=== PATIENT | female | born 1975 | race Caucasian/White ===

== ENCOUNTER 2023-09-15 10:52 | Outpatient (CLI) | payer MEDICAID | END 2023-09-15 23:59 | disposition home or self-care (01) | LOC: RAD 10:52 | PROVIDERS: ATTEND Specialist | DX: E04.2 Nontoxic multinodular goiter (principal) | CPT/HCPCS: 76536 ==

== ENCOUNTER 2024-05-29 05:37 | Outpatient (CLI) | payer MEDICAID | END 2024-05-29 23:59 | disposition home or self-care (01) | LOC: MRI02 05:37 | PROVIDERS: ATTEND Podiatrist Foot & Ankle Surgery | DX: M25.472 Effusion, left ankle (principal); M25.373 Other instability, unspecified ankle; M76.70 Peroneal tendinitis, unspecified leg; M76.829 Posterior tibial tendinitis, unspecified leg; M24.573 Contracture, unspecified ankle; L60.0 Ingrowing nail; Z98.890 Other specified postprocedural states | CPT/HCPCS: 73718; 73721 ==

== ENCOUNTER 2024-12-19 12:11 | Emergency (ER) | payer MEDICAID ==
[~2024-12-19] VITALS: Ht 157.5 cm; Wt 85.5 kg
--- NOTE | 2024-12-19 12:27 | ELECTROCARDIOGRAPH REPORT ---
[facility] Test Date: 2024-12-19 Test Time: 12:15:50 Pat Name: RYLEE WESTBROOK Department: EMERGENCY ROOM [id number] Room: Gender: F Accredited Legal Secretary: RUSS : 1975 Requested By: IVIS CASON Order Number: [id number] Reading MD: Measurements Intervals [place] Rate: 121 P: 41 NH: 139 QRS: 69 QRSD: 80 T: -5 QT: 293 QTc: 416 Interpretive Statements Sinus tachycardia Ventricular premature complex Aberrant complex Probable left atrial enlargement Borderline T abnormalities, anterior leads Baseline wander in lead(s) V4,V5 Please click the below link to view image of tracing.
[2024-12-19 12:38] LABS: MEAN PLATELET VOLUME 8.6 FL (7.4-10.4); RED CELL DISTRIBUTION WIDTH 12.4 % (11.5-14.5)
--- NOTE | 2024-12-19 12:45 | RADIOLOGY REPORT ---
AP portable chest CLINICAL INDICATION: CP FINDINGS: Heart size is normal. No infiltrates or effusions. No bony thoracic abnormalities. IMPRESSION: 1. No acute cardiopulmonary pathology
[2024-12-19 12:53] LABS: CREATININE 0.79 MG/DL (0.40-0.90); PRO BRAIN NATRIURETIC PEPTIDE < 30 PG/ML (0-125); TOTAL CARBON DIOXIDE 18.9 MMOL/L (24-32); eCRCL 67 ML/MIN; eGFR 77 ML/MIN
[2024-12-19] MEDS: mag hydrox/Alum hydrox/simeth 30ml oral suspension PO ONE (15:31)
[2024-12-19] MEDS: LIDOcaine 2% Viscous 15ml cup MM PRN (15:31)
[2024-12-19] MEDS: diazepam inj 5 MG/ML inj. IV ONE (15:57)
--- NOTE | 2024-12-19 16:53 | Physician Documentation ---
History of Present Illness ~ Chief Complaint: Chest Pain Stated Complaint: CP Time Seen by MD: 13:36 Mode of Arrival: POV [facility] 48F presents to the ED with a complaint of midsternum chest pain which is burning in nature. She states it is started yesterday. She says the pain ranges from four to 10/10. Also reports nausea and shortness a breath. States she had a recent surgery on November 30 on her left ankle. Denies any cigarette smoking. The patient is not tachycardic She does however report an increase in anxiety and a long history of anxiety which he has not been medicated for. Day of Onset: Dec 19, 2024 Medication Reconciliation Allergies: Coded Allergies: acetaminophen (Verified Allergy, Severe, DIFF BREATHING, 12/19/24) baclofen (Verified Allergy, Severe, RASH, 12/19/24) codeine (Verified Allergy, Severe, DIFF BREATHING, 12/19/24) cyclobenzaprine (Verified Allergy, Severe, RASH, 12/19/24) doxycycline (Verified Allergy, Severe, HIVES AN DRASH, 12/19/24) hydrocodone (Verified Allergy, Severe, DIFF BREATHING, 12/19/24) sugammadex (Verified Allergy, Severe, ANAPHYLATIC RXN, 12/19/24) tramadol (Verified Allergy, Severe, DIFFICULITY BREATHING, 12/19/24) clindamycin (Verified Allergy, Unknown, RASH AND HIVES, 12/19/24) meloxicam (Verified Allergy, Unknown, RASH AND HIVES, 12/19/24) Scheduled Aspirin (Aspirin EC), 1 TAB PO DAILY, (Reported) Cholecalciferol (Vitamin D3) (Vitamin D3), 1 CAP PO Q7D, (Reported) Cholecalciferol (Vitamin D3) (Vitamin D3), 1 TAB PO DAILY, (Reported) Ferrous Sulfate (Iron), 1 TAB PO Q12H, (Reported) Magnesium Oxide (Magnesium), 2 CAP PO DAILY, (Reported) Metaxalone (Metaxalone), 800 MG PO BID, (Reported) Omeprazole (Prilosec), 1 CAP PO DAILY Miscellaneous Medications Bacillus Coagulans (Probiotic), (Reported) Past Medical History Last Menstrual Period: Dec 08, 2024 Smoking Status: Never smoker Review of Systems All Other Systems at this time: Reviewed and Negative ROS As stated above in the HPI, otherwise all systems are reviewed and negative. Physical Exam Vital Signs: Temperature: 96.2, Heart Rate: 115, Respiratory Rate: 22, BP: 135/82, Pulse Oximetry: 98, Weight: 85.450 Oxygen Flow Rate: 0 Physical Exam General: No acute distress Respiratory: Lungs clear, no respiratory distress. Chest: No accessory muscle use. Cardiovascular: Regular rate and rhythm, no murmurs. Gastrointestinal: Soft, nontender, nondistended. Bowels sounds present. Extremities: Normal range of motion, no deformity. Neurologic: Oriented x4. Psychiatric: Normal mood and affect. Skin: Normal color, warm and dry. No edema, no ecchymosis. Progress Results/Orders Results/Orders Orders - NOLBERTO VELAZQUEZ DIETARY ASSISTANT Lidocaine 2% Viscous (Xylocaine 2% Visco (12/19/24 14:55) Cta Chest Pe (12/19/24 16:36) Urinalysis (12/19/24 15:29) Completed Orders - NOLBERTO VELAZQUEZ DIETARY ASSISTANT LA (12/19/24 14:30) D-Dimer (12/19/24 14:30) Mag & Alum Hydrox/Simeth Susp (Maalox Or (12/19/24 14:55) Cta Chest Pe (12/19/24 16:36) Diazepam Inj (Valium Inj) (12/19/24 15:50) Iohexol 350mg/Ml 100ml (Omnipaque 350mg/ (12/19/24 16:26) Medications Received in ER Medications (Trade) Dose Ordered Sig/Vanessa Route PRN Reason Start Time Stop Time Status Last Admin Dose Admin (Xylocaine 2% Viscous 15mL cup) 15 ml Q4H PRN MM sore throat 12/19/24 14:55 12/19/24 15:31 15 ML (Maalox oral suspension) 30 ml ONCE ONCE PO 12/19/24 14:55 12/19/24 14:56 DC 12/19/24 15:31 30 ML (Valium inj) 5 mg ONCE ONCE IV 12/19/24 15:50 12/19/24 15:51 DC 12/19/24 15:57 5 MG Vital Signs 12/19/24 12/19/24 12/19/24 12/19/24 12:17 12:50 16:57 17:52 Temp 96.2 98.5 Pulse 115 89 95 Resp 16 22 14 12 B/P (MAP) 135/82 130/82 (98) 130/82 Pulse Ox 98 95 97 O2 Flow Rate 0 Laboratory Tests Test 12/19/24 12:17 12/19/24 13:50 12/19/24 14:34 12/19/24 15:11 White Blood Count 11.7 H Red Blood Count 5.36 Hemoglobin 16.9 H Hematocrit 49.3 H Mean Corpuscular Volume 92.0 Mean Corpuscular Hemoglobin 31.5 H Mean Corpuscular Hemoglobin Concent 34.3 Red Cell Distribution Width 12.4 Platelet Count 370 Mean Platelet Volume 8.6 Neutrophils (%) (Auto) 76.8 H Lymphocytes (%) (Auto) 18.6 L Monocytes (%) (Auto) 3.9 Eosinophils (%) (Auto) 0.1 Basophils (%) (Auto) 0.6 Neutrophils # (Auto) 9.0 H Lymphocytes # (Auto) 2.2 Monocytes # (Auto) 0.5 Eosinophils # (Auto) 0.0 Basophils # (Auto) 0.1 CBC Comment D-Dimer 0.73 H D-Dimer Comment Sodium Level 139 Potassium Level 3.8 Chloride Level 105 Carbon Dioxide Level 18.9 L Anion Gap 15 Blood Urea Nitrogen 9 Creatinine 0.79 Estimated GFR/1.73 m2 77 BUN/Creatinine Ratio 11.4 Glucose Level 128 H Calcium Level 9.2 Total Bilirubin 0.5 Aspartate Amino Transf (AST/SGOT) 19 Alanine Aminotransferase (ALT/SGPT) 29 Alkaline Phosphatase 63 Troponin I High Sensitivity < 4 L < 4 L 4 Troponin I High Sens Percent Delta Troponin I Hi Sens Absolute Change Pro-B-Type Natriuretic Peptide < 30 Total Protein 7.2 Albumin 4.1 Globulin 3.1 Albumin/Globulin Ratio 1.3 Chemistry Comments Urine Comment Lactic Acid Level 1.0 Medical Decision Making Findings This patient could not be ruled out for PE based on having a positive D-dimer and recent surgery. CTA ordered After receiving GI cocktail patient reported overall improved symptoms. I suspect that the primary cause of her chest pain and abdominal pain is secondary to GERD and anxiety. I treated her for both and she reported improved symptoms. CT came back negative for PE Differential Dx:Considerations: Include: angina, aortic dissection, chest wall pain, cholelithiasis, CHF, costochondritis, esophageal reflux/spasm, gastritis, herpes zoster, myocardial infarction, pericarditis, pleuritis, pancreatitis, pneumonia, pneumothorax, pulmonary embolus, other Departure Disposition: HOME / SELF CARE / HOMELESS Impression: Primary Impression: GERD (gastroesophageal reflux disease) Discharge Instructions: Gastroesophageal Reflux Scan Referrals: NO PRIMARY CARE PROVIDER (PCP) Prescriptions Omeprazole (Prilosec) 40 Mg Capsule 1 CAP PO DAILY for 30 Days, #30 CAP Prov: NOLBERTO VELAZQUEZ NP 12/19/24 Signature Scribe Signature: f Attestation: Scribed for Nolberto Velazquez Hand Tool Filer by Nolberto Cain NP . 12/19/24 17:50 NOLBERTO VELAZQUEZ NP Dec 19, 2024 16:53
[2024-12-19] MEDS ORDERED: CHOL500044 PO (17:07)
[2024-12-19] MEDS ORDERED: CHOL500049 PO (17:07)
[2024-12-19] MEDS ORDERED: BACI1TAB (17:07)
[2024-12-19] MEDS ORDERED: ASPI81TA52 PO (17:07)
[2024-12-19] MEDS ORDERED: META-117 PO (17:07)
[2024-12-19] MEDS ORDERED: MAGN400C PO (17:07)
[2024-12-19] MEDS ORDERED: FERR-28 PO (17:07)
--- NOTE | 2024-12-19 17:20 | RADIOLOGY REPORT ---
Indication: reecent surgery CP and +dimer Technique: CT axial images of the abdomen and pelvis are obtained with intravenous contrast. Coronal and sagittal reformats were obtained. Radiation Dose Information: CTDI volume is 22 mGy. Dose-length product is 784 mGy*cm Comparison: None FINDINGS: There is no filling defect in the main left and right pulmonary arteries. Segmental and subsegmental branches suboptimally opacified/ characterize. Trachea patent. No pneumothorax. No pulmonary airspace consolidation. 3 mm right lower lobe pulmonary nodule. Right thyroid nodule measuring 2.2 cm. Heart normal in size. No supraclavicular, axillary lymphadenop athy. Hepatic steatosis. No aggressive osseous process. 1.4 cm left breast posterior depth nodule. [id number] thoracic degenerative disc disease. IMPRESSION: No evidence for large pulmonary embolism. 2.2 cm right thyroid nodule. Recommend thyroid ultrasound to further characterize. 3 mm right lower lobe pulmonary nodule. Recommend follow-up per Fleischner society criteria. 1.4 cm left breast posterior depth nodule. Recommend correlation with mammography, breast ultrasound . Other findings as described.
[2024-12-19] MEDS ORDERED: OMEP40CA21 PO (17:49)
[2024-12-19 17:50] LABS: LEUKOCYTE ESTERASE ,URINE NEGATIVE (Neg); NITRITES, URINE NEGATIVE (Neg); OCCULT BLOOD,URINE NEGATIVE (Neg)
[2024-12-19 17:52] VITALS: BP 130/82; PULSE 95; RESP 12; TEMP 98.5; O2SAT 97
[2024-12-19 17:59] LABS: UA COLLECTION TYPE URINAL
== END 2024-12-19 18:05 | disposition home or self-care (01) ==
LOC: ER 12:12
DX: K21.9 Gastro-esophageal reflux disease without esophagitis (principal); F41.9 Anxiety disorder, unspecified; Z88.6 Allergy status to analgesic agent; Z88.1 Allergy status to other antibiotic agents; Z88.5 Allergy status to narcotic agent; Z88.8 Allergy status to other drugs, medicaments and biological substances; Z79.899 Other long term (current) drug therapy; Z79.82 Long term (current) use of aspirin
CPT/HCPCS: 36415; 71045; 71275; 80053; 81003; 83605; 83880; 84484; 85025; 85379; 93005; 96374; 99285; J3360; Q9967

== ENCOUNTER 2024-12-23 17:12 | Emergency (ER) | payer MEDICAID ==
[~2024-12-23] VITALS: Ht 157.5 cm; Wt 80.3 kg
[~2024-12-23 17:12] MED LIST: ASPI81TA52 PO; BACI1TAB; CHOL500044 PO; CHOL500049 PO; FERR-28 PO; MAGN400C PO; META-117 PO; OMEP40CA21 PO
--- NOTE | 2024-12-23 17:24 | ELECTROCARDIOGRAPH REPORT ---
[facility] Test Date: 2024-12-23 Test Time: 17:18:09 Pat Name: RYLEE WESTBROOK Department: EMERGENCY ROOM Room: Gender: F Folder Inspector: TAMERA : 1975 Requested By: KARTHIK SIFUENTES Order Number: [id number] Reading MD: Measurements Intervals [place] Rate: 103 P: 35 ND: 142 QRS: 39 QRSD: 85 T: -19 QT: 328 QTc: 430 Interpretive Statements Atrial-paced complexes Borderline T abnormalities, diffuse leads Please click the below link to view image of tracing.
--- NOTE | 2024-12-23 17:32 | Physician Documentation ---
History of Present Illness Stated Complaint: CHEST PAIN/LIGHTHEADED HPI 48-year-old female that presents to the emergency department for evaluation of swelling and drainage coming from a surgical site her left posterior medial ankle. Patient reports that she had surgery on that ankle on November 30. Patient reports that she was seen previously this week for the same complaint she was prescribed a an ointment to put on the healing surgical incision at that time but that the swelling and drainage have increased since that time. Reports that she was also seen for chest burning on Tuesday and diagnosed with GERD at that time. Placed on Protonix patient has just started the regimen complains that she still has burning in her chest. With the complaints at this time. Medication Reconciliation Allergies: Coded Allergies: acetaminophen (Verified Allergy, Severe, DIFF BREATHING, 12/23/24) baclofen (Verified Allergy, Severe, RASH, 12/23/24) codeine (Verified Allergy, Severe, DIFF BREATHING, 12/23/24) cyclobenzaprine (Verified Allergy, Severe, RASH, 12/23/24) doxycycline (Verified Allergy, Severe, HIVES AN DRASH, 12/23/24) hydrocodone (Verified Allergy, Severe, DIFF BREATHING, 12/23/24) sugammadex (Verified Allergy, Severe, ANAPHYLATIC RXN, 12/23/24) tramadol (Verified Allergy, Severe, DIFFICULITY BREATHING, 12/23/24) clindamycin (Verified Allergy, Unknown, RASH AND HIVES, 12/23/24) meloxicam (Verified Allergy, Unknown, RASH AND HIVES, 12/23/24) Scheduled Aspirin (Aspirin EC), 1 TAB PO DAILY, (Reported) Cholecalciferol (Vitamin D3) (Vitamin D3), 1 CAP PO Q7D, (Reported) Cholecalciferol (Vitamin D3) (Vitamin D3), 1 TAB PO DAILY, (Reported) Ferrous Sulfate (Iron), 1 TAB PO Q12H, (Reported) Magnesium Oxide (Magnesium), 2 CAP PO DAILY, (Reported) Metaxalone (Metaxalone), 800 MG PO BID, (Reported) Omeprazole (Prilosec), 1 CAP PO DAILY Miscellaneous Medications Bacillus Coagulans (Probiotic), (Reported) Review of Systems ROS As stated above in the HPI, otherwise all systems are reviewed and negative. Physical Exam Physical Exam VITALS: Reviewed and as above. GENERAL: Alert, no apparent distress. HEENT: Normocephalic, atraumatic, PERRL, EOMI, dry mucosa, no erythema RESPIRATORY: Lungs clear, normal breath sounds, no respiratory distress. CHEST: No accessory muscle use, no retractions CV: Regular rate, rhythm, no edema, no murmur, No: JVD GI: Soft, non-tender, bowels sounds present, no rebound, guarding, or rigidity BACK: No CVA tenderness, or swelling MUSCULOSKELETAL No deformities, no edema SKIN: Warm and dry, mild erythema and swelling noted to surgical incision of the medial left ankle. NEURO: Oriented x4, No motor or sensory deficit PSYCH: Normal mood and affect, no agitation Medical Decision Making Findings This patient presents with initial presentation of health erythema to the healing surgical site. Sensitivity/pain to light touch around the erythematous area. No lymphangitic spread visible and no fluid pockets or fluctuance concerning for abscess noted. Low concern for osteomyelitis or DVT. No immune compromise, bullae, pain out of proportion, or rapid progression concerning for necrotizing fasciitis. Patient to be discharged home with keflex with follow up with their PMD. Strict return precautions will be provided. Differential Dx:Considerations: Include: AAA, -Complete, - Incomplete, -Inevitable, -Missed, -Threatened, Abruptio placentae, Angina/TX, Aortic dissection, Appendicitis, Bowel obstruction, Cholangitis, Cholelithasis, Constipation, Diverticular disease, Esophageal rupture, Esophagitis, Gastritis/PUD, Gastroenteritis, GI hemorrhage, Hernia, Hepatitis, Inflammatory BD, Ischemic bowel, Ovarian cyst/torsion, Pancreatitis, PID, Porphyria, Trauma, intraabdominal, Urinary obstruction, Urinary tract infection, Urolithiasis, Other Departure Disposition: 01 HOME / SELF CARE / HOMELESS Impression: Primary Impression: Laceration Additional Impressions: Erythema Surgical aftercare, injury or trauma Condition: Stable Discharge Instructions: How to Change Your Wound Dressing Additional Instructions: This patient presents with initial presentation of health erythema to the healing surgical site. Sensitivity/pain to light touch around the erythematous area. No lymphangitic spread visible and no fluid pockets or fluctuance concerning for abscess noted. Low concern for osteomyelitis or DVT. No immune compromise, bullae, pain out of proportion, or rapid progression concerning for necrotizing fasciitis. Patient to be discharged home with keflex. Follow up with the primary care provider. Please return to the emergency department with any worsening or recurrent symptoms or any additional concerning symptoms that we discussed here today i.e. increased redness increased swelling purulent drainage from the surgical site fever chills or any other concerning symptoms discussed here today. Present as needed for discomfort. Take your antibiotics as prescribed. Rest ice elevation as tolerated. Referrals: NO PRIMARY CARE PROVIDER (PCP) Prescriptions Cephalexin*Monohydrate* (Keflex*) 500 Mg Capsule 1 CAP PO QID for 7 Days, #28 CAP Prov: GALINA TAVAREZ 12/23/24 Education Educated: Patient Educated regarding: diagnosis, treatment, need for follow up Signature Scribe Signature: A Attestation: Scribed for Galina Tavarez by CANDY Katz . 12/23/24 18:46 GALINA TAVAREZ Dec 23, 2024 17:32
--- NOTE | 2024-12-23 17:46 | RADIOLOGY REPORT ---
CHEST RADIOGRAPH Indication: WOUND Technique: Single frontal view of the chest was obtained Comparison: CT CTA CHEST PE W/ IV CONTRAST on DOS: 12/19/24, DI CHEST,SINGLE VIEW on DOS: 12/19/24 FINDINGS: Lines and Tubes: None Lungs: No focal consolidation. Pleura: No effusion. No pneumothorax. Cardiomediastinal contours: Unremarkable Bones: No acute osseous abnormality. IMPRESSION: No acute cardiopulmonary disease.
[2024-12-23 17:53] LABS: MEAN PLATELET VOLUME 8.7 FL (7.4-10.4); RED CELL DISTRIBUTION WIDTH 12.7 % (11.5-14.5)
[2024-12-23 17:58] LABS: CREATININE 0.88 MG/DL (0.40-0.90); TOTAL CARBON DIOXIDE 22.7 MMOL/L (24-32); eCRCL 60 ML/MIN; eGFR 68 ML/MIN
[2024-12-23 18:21] VITALS: RESP 16
[2024-12-23] MEDS: POTASSIUM CHLORIDE 20 MEQ/15 ML oral solution PO SCH (18:35)
[2024-12-23] MEDS ORDERED: CEPH-585 PO (18:45)
[2024-12-23 19:12] VITALS: BP 147/87; PULSE 78; TEMP 98.7; O2SAT 100
== END 2024-12-23 19:17 | disposition home or self-care (01) ==
LOC: ER 17:12
DX: S91.012A Laceration without foreign body, left ankle, initial encounter (principal); L53.8 Other specified erythematous conditions; K21.9 Gastro-esophageal reflux disease without esophagitis; Z95.0 Presence of cardiac pacemaker; Z88.5 Allergy status to narcotic agent; Z88.1 Allergy status to other antibiotic agents; Z88.8 Allergy status to other drugs, medicaments and biological substances; Z88.6 Allergy status to analgesic agent; Z79.899 Other long term (current) drug therapy; Z79.82 Long term (current) use of aspirin; X58.XXXA Exposure to other specified factors, initial encounter; Y93.89 Activity, other specified; Y92.89 Other specified places as the place of occurrence of the external cause; Y99.8 Other external cause status
CPT/HCPCS: 36415; 71045; 80048; 83605; 84145; 85025; 87040; 93005; 99285; A6223; A6449

== ENCOUNTER 2025-01-08 19:33 | Emergency (ER) | payer MEDICAID ==
[~2025-01-08] VITALS: Ht 157.5 cm; Wt 74.6 kg
--- NOTE | 2025-01-08 20:02 | ELECTROCARDIOGRAPH REPORT ---
[facility] Test Date: 2025-01-08 Test Time: 19:59:36 Pat Name: RYLEE WESTBROOK Department: [facility] Patient ID: [id number] Room: Gender: F House Piping Inspector: : 1975 Requested By: JOE MURPHY Order Number: [id number] Reading MD: Measurements Intervals [place] Rate: 129 P: 58 IN: 136 QRS: 97 QRSD: 74 T: -33 QT: 272 QTc: 399 Interpretive Statements Sinus tachycardia Borderline right axis deviation Borderline repolarization abnormality Please click the below link to view image of tracing.
--- NOTE | 2025-01-08 20:25 | Physician Documentation ---
History of Present Illness ~ Chief Complaint: Weakness Stated Complaint: MULTIPLE MEDICAL COMPLAINTS Time Seen by MD: 20:12 OK to notify your PCP?: Yes HPI Patient presents to the emergency room for not feeling well. She has taken a shower today started feeling ill therefore came in to be evaluated. Positive diaphoresis positive nausea and vomiting. No sick contacts. Medication Reconciliation Allergies: Coded Allergies: baclofen (Verified Allergy, Severe, RASH, 12/23/24) codeine (Verified Allergy, Severe, DIFF BREATHING, 12/23/24) cyclobenzaprine (Verified Allergy, Severe, RASH, 12/23/24) doxycycline (Verified Allergy, Severe, HIVES AN DRASH, 12/23/24) hydrocodone (Verified Allergy, Severe, DIFF BREATHING, 12/23/24) sugammadex (Verified Allergy, Severe, ANAPHYLATIC RXN, 12/23/24) tramadol (Verified Allergy, Severe, DIFFICULITY BREATHING, 12/23/24) clindamycin (Verified Allergy, Unknown, RASH AND HIVES, 12/23/24) meloxicam (Verified Allergy, Unknown, RASH AND HIVES, 12/23/24) Scheduled Aspirin (Aspirin EC), 1 TAB PO DAILY, (Reported) Cholecalciferol (Vitamin D3) (Vitamin D3), 1 CAP PO Q7D, (Reported) Cholecalciferol (Vitamin D3) (Vitamin D3), 1 TAB PO DAILY, (Reported) Ferrous Sulfate (Iron), 1 TAB PO Q12H, (Reported) Magnesium Oxide (Magnesium), 2 CAP PO DAILY, (Reported) Metaxalone (Metaxalone), 800 MG PO BID, (Reported) Omeprazole (Prilosec), 1 CAP PO DAILY Miscellaneous Medications Bacillus Coagulans (Probiotic), (Reported) Review of Systems ROS All review of systems negative except as per HPI Physical Exam Vital Signs: Temperature: 98.4, Source: Temporal, Heart Rate: 116, Respiratory Rate: 13, BP: 113/79, Pulse Oximetry: 99, Weight: 74.560 Oxygen Flow Rate: 0 Physical Exam General: Patient is awake, alert, oriented x4 in no acute distress, noted diaphoresis Head: Normocephalic and atraumatic. Eyes: Conjunctival normal. EOMI. PERRL. ENT: Mucous membranes moist. Neck: Supple, trachea is midline. Chest: Clear to auscultation bilaterally without rales, rhonchi, or wheezes. There is no accessory muscle use or retractions. Cardiac: Tachycardic and regular without murmurs, gallops, or rubs. Abd: Soft, nondistended, nontender, with normoactive bowel sounds. No guarding, rebound, or rigidity. Extremities: Normal strength. Normal range of motion. Surgical wound to left foot appears well and noninfected Progress Results/Orders Results/Orders Orders - TANNER TITUS MD Chest,Single View (01/08/25 20:17) Monitor (01/08/25 20:04) Saline Lock (01/08/25 20:04) Oxygen (01/08/25 20:04) Hs Troponin I W Calculations (01/08/25 23:04) Covid19 Binax Poc Result Entry (01/08/25 20:15) Completed Orders - TANNER TITUS MD Electrocardiogram (01/08/25 19:57) Chest,Single View (01/08/25 20:17) Cbc/Diff (01/08/25 20:04) BMP (01/08/25 20:04) PBNP (01/08/25 20:04) Hs Troponin I W Calculations (01/08/25 20:04) Hs Troponin I W Calculations (01/08/25 22:04) Famotidine/Pf Iv Inj (Pepcid Iv Inj) (01/08/25 20:20) Ondansetron Inj. (Zofran 4mg/2ml Vial) (01/08/25 20:20) Procalcitonin (01/08/25 20:19) Acetaminophen 1,000mg/100ml Iv (Ofirmev (01/08/25 20:25) Potassium Cl Sr Tablet (K-Dur Tablet) (01/08/25 21:08) Normal Saline 1000ml (0.9% Sodium Chlori (01/08/25 21:10) Ua W/Microscopic, Cult If Ind (01/08/25 20:13) Medications Received in ER Medications (Trade) Dose Ordered Sig/Vanessa Route PRN Reason Start Time Stop Time Status Last Admin Dose Admin (Pepcid IV inj) 20 mg ONCE ONCE IV 01/08/25 20:20 01/08/25 20:21 DC 01/08/25 20:28 20 MG (Zofran 4mg/2ml vial) 8 mg ONCE ONCE IV 01/08/25 20:20 01/08/25 20:21 DC 01/08/25 20:28 8 MG Acetaminophen 100 ml @ 400 mls/hr ONCE ONCE IV 01/08/25 20:25 01/08/25 20:39 DC 01/08/25 20:33 400 MLS/HR (K-DUR tablet) 20 meq ONCE STAT PO 01/08/25 21:08 01/08/25 21:09 DC 01/08/25 21:24 20 MEQ Sodium Chloride 1,000 ml @ 1,000 mls/hr ONCE ONCE IV 01/08/25 21:10 01/08/25 22:09 DC 01/08/25 21:27 1,000 MLS/HR Vital Signs 01/08/25 01/08/25 01/08/25 01/08/25 19:54 20:00 20:13 22:04 Temp 98.2 98.4 Pulse 110 116 95 Resp 18 16 13 16 B/P (MAP) 126/75 113/79 (90) 115/80 (92) Pulse Ox 98 99 99 O2 Flow Rate 0 0 Laboratory Tests Test 01/08/25 20:13 01/08/25 20:28 01/08/25 20:54 01/08/25 22:13 Urine Specimen Description Non-specified Urine Color Mirella Urine Clarity Clear Urine pH 5.5 Urine Specific [place] 1.010 Urine Protein Trace Urine Glucose (UA) Negative Urine Ketones >=80 Urine Occult Blood Negative Urine Nitrite Negative Urine Bilirubin Moderate Urine Urobilinogen 1.0 Urine Leukocyte Esterase Negative Urine RBC 0-2 Urine WBC 0-4 Urine Squamous Epithelial Cells Many Urine Bacteria 1+ Urine Hyaline Casts 0-3 Urine Mucus Moderate Urine Culture Indicated Not ind Volume Urine Centrifuged 10 ml Urine Comment White Blood Count 18.2 H Red Blood Count 5.04 Hemoglobin 15.8 Hematocrit 45.2 H Mean Corpuscular Volume 89.5 Mean Corpuscular Hemoglobin 31.3 H Mean Corpuscular Hemoglobin Concent 34.9 Red Cell Distribution Width 12.7 Platelet Count 259 Mean Platelet Volume 9.4 Neutrophils (%) (Auto) 79.1 H Lymphocytes (%) (Auto) 12.1 L Monocytes (%) (Auto) 8.4 Eosinophils (%) (Auto) 0.1 Basophils (%) (Auto) 0.3 Neutrophils # (Auto) 14.4 H Lymphocytes # (Auto) 2.2 Monocytes # (Auto) 1.5 H Eosinophils # (Auto) 0.0 Basophils # (Auto) 0.1 CBC Comment Sodium Level 130 L Potassium Level 2.8 *L Chloride Level 94 L Carbon Dioxide Level 21.8 L Anion Gap 14 Blood Urea Nitrogen 11 Creatinine 1.10 H Estimated GFR/1.73 m2 52 BUN/Creatinine Ratio 10.0 Glucose Level 119 H Calcium Level 9.2 Troponin I High Sensitivity 6 6 Pro-B-Type Natriuretic Peptide 95 Albumin 3.7 Procalcitonin < 0.05 Chemistry Comments SARS-CoV-2 Antigen (Rapid) Negative Troponin I High Sens Percent Delta 0 Troponin I Hi Sens Absolute Change 0 EKG/XRAY/CT/US/VASC/MRI EKG : Additional Comment EKG interpreted by myself shows time of 1958, rate 129, sinus tachycardia, right axis deviation, no ST changes Chest X-Ray : Additional Comments One view chest x-ray interpreted by myself shows no effusions, no infiltrates and normal cardiac silhouette Medical Decision Making Findings Upon re-evaluation patient is feeling much better and tolerating p.o.. Patient presented to the emergency room with variety of symptoms that has responded to therapy. Differentials include but are not limited to COVID, viral syndrome, pneumonia, gastritis, electrolyte disturbances therefore emergent labs indicated. Labs concerning for low potassium which has been gaining to be supplemented. Noted leukocytosis which I believe is stress related to given negative procalcitonin and patient's response to therapy. No abdominal tenderness to palpation he had not feel she is suffering from intra-abdominal infection. ER precautions discussed. Departure Disposition: HOME / SELF CARE / HOMELESS Impression: Primary Impression: Gastritis Additional Impression: Hypokalemia Condition: Improved Discharge Instructions: Gastritis, Adult, [id number] Additional Instructions: Tylenol for body aches and fevers Referrals: NO PRIMARY CARE PROVIDER (PCP) Prescriptions Potassium Chloride* (K-Dur*) 20 Meq Tab.prt.sr 1 TAB PO Q12H, #6 TAB Prov: TANNER TITUS MD 01/08/25 Ondansetron 8mg ODT (Ondansetron Odt) 8 Mg Tab.rapdis 1 TAB PO Q6H for nausea/vomiting for 3 Days, #12 TAB 0 Refills Prov: TANNER TITUS MD 01/08/25 Education Educated: Patient Educated regarding: diagnosis, treatment, need for follow up Signature Scribe Signature: No scribe Attestation: The note accurately reflects work and decisions made by me.Tanner Titus MD 01/08/25 22:50 TANNER TITUS MD Jan 08, 2025 20:25
[2025-01-08] MEDS: famotidine/PF 10 mg/ml inj IV ONE (20:28)
[2025-01-08] MEDS: ondansetron/PF 4mg/2ml inj IV ONE (20:28)
[2025-01-08] MEDS: acetaminophen 1,000mg/100ml IV 100 ML IV ONE (20:33)
--- NOTE | 2025-01-08 20:41 | RADIOLOGY REPORT ---
EXAM: DI CHEST,SINGLE VIEW HISTORY: CP TECHNIQUE: 1 view of the chest COMPARISON: DI CHEST,SINGLE VIEW on DOS: 12/23/24 FINDINGS/IMPRESSION: LUNGS: No pleural effusion, consolidation, or pneumothorax MEDIASTINUM: Unremarkable BONES: No acute osseous abnormality OTHER: None
[2025-01-08 20:43] LABS: MEAN PLATELET VOLUME 9.4 FL (7.4-10.4); RED CELL DISTRIBUTION WIDTH 12.7 % (11.5-14.5)
[2025-01-08 21:04] LABS: CREATININE 1.10 MG/DL (0.40-0.90); PRO BRAIN NATRIURETIC PEPTIDE 95 PG/ML (0-125); TOTAL CARBON DIOXIDE 21.8 MMOL/L (24-32); eCRCL 48 ML/MIN; eGFR 52 ML/MIN
[2025-01-08] MEDS: potassium Cl 20 mEq SR tablet PO STA (21:24)
[2025-01-08] MEDS: normal saline 1000ml 1,000 ML IV ONE (21:27)
[2025-01-08 21:29] LABS: LEUKOCYTE ESTERASE ,URINE NEGATIVE (Neg); NITRITES, URINE NEGATIVE (Neg); OCCULT BLOOD,URINE NEGATIVE (Neg)
[2025-01-08 21:32] LABS: UA COLLECTION TYPE NON-SPECIFIED
[2025-01-08 21:51] LABS: HYALINE CASTS 0-3 /LPF (NEGATIVE); MUCUS STRANDS MODERATE /LPF (Neg)
[2025-01-08 21:52] LABS: SQUAMOUS EPITHELIAL CELL,UR MANY /LPF (FEW)
[2025-01-08] MEDS ORDERED: ONDA-245 PO (22:50)
[2025-01-08] MEDS ORDERED: POTA-207 PO (22:51)
[2025-01-08 23:00] VITALS: BP 121/70; PULSE 90; RESP 16; TEMP 98.6; O2SAT 97
== END 2025-01-08 23:06 | disposition home or self-care (01) ==
LOC: ER 19:33
DX: K29.70 Gastritis, unspecified, without bleeding (principal); E87.6 Hypokalemia; Z88.5 Allergy status to narcotic agent; Z88.1 Allergy status to other antibiotic agents; Z88.8 Allergy status to other drugs, medicaments and biological substances; Z79.82 Long term (current) use of aspirin; Z79.899 Other long term (current) drug therapy; Z20.822 Contact with and (suspected) exposure to COVID-19
CPT/HCPCS: 36415; 71045; 80048; 81001; 83880; 84145; 84484; 85025; 87811; 93005; 96361; 96374; 96375; 99285; J0131; J2405; J3490; J7030; 96365

== ENCOUNTER 2025-01-10 12:24 | Emergency (ER) | payer MEDICAID ==
[~2025-01-10] VITALS: Ht 154.9 cm; Wt 77.0 kg
[~2025-01-10 12:24] MED LIST changes: +ONDA-245 PO; +POTA-207 PO
--- NOTE | 2025-01-10 13:57 | Physician Documentation ---
History of Present Illness ~ Chief Complaint: Edema Stated Complaint: L LEG PAIN Time Seen by MD: 14:43 HPI This is a 49-year-old female who presents with left pain and swelling, patient reports reasons surgical procedure to the leg. Patient reports the pain extends into her groin. Patient reports no shortness of breath or chest pain. This is a 49-year-old female that presents to the emergency department for evaluation of swelling and pain to the lower left extremity extending from the groin fold all the way to the dorsal aspect of the foot. Patient reports that she has had swelling and pain over the last several days it has become progressively worse. Patient reports that she had a surgical reduction of a ligamentous injury around the 1st week of November she also had a complication of that surgery a few weeks following with infection that was treated with antibiotics. Patient denies fevers nausea vomiting diarrhea or any other symptoms at this time. Medication Reconciliation Allergies: Coded Allergies: baclofen (Verified Allergy, Severe, RASH, 12/23/24) codeine (Verified Allergy, Severe, DIFF BREATHING, 12/23/24) cyclobenzaprine (Verified Allergy, Severe, RASH, 12/23/24) doxycycline (Verified Allergy, Severe, HIVES AN DRASH, 12/23/24) hydrocodone (Verified Allergy, Severe, DIFF BREATHING, 12/23/24) sugammadex (Verified Allergy, Severe, ANAPHYLATIC RXN, 12/23/24) tramadol (Verified Allergy, Severe, DIFFICULITY BREATHING, 12/23/24) clindamycin (Verified Allergy, Unknown, RASH AND HIVES, 12/23/24) meloxicam (Verified Allergy, Unknown, RASH AND HIVES, 12/23/24) Scheduled Albuterol Sulfate (Ventolin Hfa), 1 PUFF IH PRN, (Reported) Clonazepam (Clonazepam), 1 TAB PO TID, (Reported) Pantoprazole Sodium (Pantoprazole Sodium), 1 TAB PO QAM, (Reported) Potassium Chloride* (K-Dur*), 1 TAB PO Q12H Scheduled PRN Epinephrine (Epinephrine), 0.3 MG IM PRN PRN for allergies, (Reported) Ubrogepant (Ubrelvy), 1 TAB PO PRN PRN for migraine headaches, (Reported) Discontinued Medications Aspirin (Aspirin EC), 1 TAB PO DAILY, (Reported) Discontinued Reason: patient no longer taking Bacillus Coagulans (Probiotic), (Reported) Discontinued Reason: patient no longer taking Cholecalciferol (Vitamin D3) (Vitamin D3), 1 CAP PO Q7D, (Reported) Discontinued Reason: patient no longer taking Cholecalciferol (Vitamin D3) (Vitamin D3), 1 TAB PO DAILY, (Reported) Discontinued Reason: patient no longer taking Ferrous Sulfate (Iron), 1 TAB PO Q12H, (Reported) Discontinued Reason: patient no longer taking Magnesium Oxide (Magnesium), 2 CAP PO DAILY, (Reported) Discontinued Reason: patient no longer taking Metaxalone (Metaxalone), 800 MG PO BID, (Reported) Discontinued Reason: patient no longer taking Omeprazole (Prilosec), 1 CAP PO DAILY Discontinued Reason: patient no longer taking Ondansetron 8mg ODT (Ondansetron Odt), 1 TAB PO Q6H Discontinued Reason: patient no longer taking Past Medical History Past Surgical History: orthopedic surgeries Review of Systems ROS As stated above in the HPI, otherwise all systems are reviewed and negative. Physical Exam Vital Signs: Temperature: 97.2, Source: Temporal, Heart Rate: 113, Respiratory Rate: 16, BP: 114/78, Pulse Oximetry: 95, Weight: 77.000 Oxygen Flow Rate: 0 General Appearance VITALS: Reviewed and as above. GENERAL: Alert, nontoxic appearing, no apparent distress. HEENT: RESPIRATORY: No increased work of breathing, no respiratory distress, speaking in full clear sentences CHEST: CV: BACK: GI: EXTREMITIES: Notable edema to the left lower extremity, pale and cool to the touch. SKIN: NEURO: PSYCH: Progress Results/Orders Results/Orders Orders - TERRY WOODY MD Hospitalist (01/11/25 11:03) Fill Out Med Reconciliation (01/11/25 11:03) Vital Signs 01/10/25 01/10/25 01/10/25 01/10/25 12:57 15:08 16:15 20:26 Temp 97.2 98.0 Pulse 113 102 104 Resp 16 16 15 16 B/P (MAP) 114/78 116/77 (90) 112/74 (87) Pulse Ox 95 99 97 O2 Flow Rate 0 0 01/10/25 01/11/25 01/11/25 01/11/25 22:52 00:20 01:30 02:30 Temp 98.2 98.2 98.2 Pulse 99 99 102 100 Resp 18 B/P (MAP) 124/75 (91) 133/78 (96) 109/70 (83) 117/74 (88) Pulse Ox 95 97 98 98 O2 Flow Rate 0 0 0 01/11/25 01/11/25 01/11/25 01/11/25 04:30 06:02 06:23 06:33 Temp 98.2 98.2 Pulse 89 99 96 Resp 28 14 B/P (MAP) 109/72 (84) 112/70 (84) 112/70 (84) Pulse Ox 96 96 97 O2 Flow Rate 0 0 0 01/11/25 01/11/25 01/11/25 08:48 09:39 11:10 Pulse 85 78 97 Resp 26 B/P (MAP) 111/67 (82) 110/74 (86) 109/72 (84) Pulse Ox 96 97 95 O2 Flow Rate 0 0 0 Laboratory Tests Test 01/10/25 15:20 01/10/25 20:41 01/11/25 03:45 01/11/25 08:43 White Blood Count 12.5 H 13.3 H 13.4 H Red Blood Count 4.81 4.71 4.59 Hemoglobin 15.0 14.9 14.4 Hematocrit 43.4 42.7 41.8 Mean Corpuscular Volume 90.3 90.5 91.1 Mean Corpuscular Hemoglobin 31.1 H 31.5 H 31.4 H Mean Corpuscular Hemoglobin Concent 34.4 34.9 34.5 Red Cell Distribution Width 12.7 12.8 12.9 Platelet Count 254 258 264 Mean Platelet Volume 8.8 9.0 9.2 Neutrophils (%) (Auto) 78.2 H 76.2 H 77.5 H Lymphocytes (%) (Auto) 13.0 L 14.1 L 12.5 L Monocytes (%) (Auto) 8.2 9.0 9.5 Eosinophils (%) (Auto) 0.2 0.2 0.1 Basophils (%) (Auto) 0.4 0.5 0.4 Neutrophils # (Auto) 9.8 H 10.1 H 10.4 H Lymphocytes # (Auto) 1.6 1.9 1.7 Monocytes # (Auto) 1.0 H 1.2 H 1.3 H Eosinophils # (Auto) 0.0 0.0 0.0 Basophils # (Auto) 0.1 0.1 0.1 CBC Comment Prothrombin Time 10.7 10.8 INR International Normalized Ratio 1.0 1.1 Activated Partial Thromboplast Time 25 25 Coagulation Comments Sodium Level 137 Potassium Level 3.6 Chloride Level 100 Carbon Dioxide Level 24.9 Anion Gap 12 Blood Urea Nitrogen 12 Creatinine 0.80 Estimated GFR/1.73 m2 76 BUN/Creatinine Ratio 15.0 Glucose Level 113 H Calcium Level 9.3 Albumin 3.4 Chemistry Comments APTT (Heparin Protocol) 106 *H 36 L Re-Evaluation Re-Evaluation #1: Re-Evaluation Time: 11:00 Progress I received a call from Farida at the transfer center, , who reports that the case was reviewed by Interventional Radiology Dr. Kim at [facility]. Because of the leukocytosis present, it is felt that the thrombosis might be infected, making thrombolysis contraindicated. He recommends admission with anticoagulation, no interventional procedure at this time. Re-Evaluation #2: Re-Evaluation Time: 11:15 Progress I received a call from Breanne at [facility], as the patient had previously been accepted by both Dr. Sarmiento from IR and Dr. Heaton from the hospitalist service. The problem at that time was bed availability. Now the beds were available they have called back to see if we wanted to pursue the transfer. I spoke with Dr. Quintero, who accepted the patient, I also spoke with Dr. Sarmiento regarding the patient's current status and the discussion with IR at [facility]. He kindly agrees to see the patient once she is transferred over there and make a consultation, although thrombectomy is not a given at this point. Patient will be readied for transfer. Consults/PCP Consults/PCP : Time Call Requested: 11:02 Consult Reason/Comments: Hospitalist Medical Decision Making Findings This patient presents with initial presentation of local erythema, warmth, swelling concerning for cellulitis vs DVT.Pain to light touch around the edematous area. Low concern for osteomyelitis at this time. No immune compromise, bullae, pain out of proportion, or rapid progression concerning for necrotizing fasciitis. Vascular scan obtained with positive results. Driver License Agent unable to identify origin of clot at the iliac junction we will order CTA of pelvis and abdomen for further evaluation. Contact the vascular service for consultation. Discussed this case with Dr. Alvarado from vascular surgery. His recommendation at this time is to contact [facility] and speak with our interventional radiologist for consultation regarding a thrombectomy. [facility] are unable to accept patient due to no bed availability. Call has been made to [facility] awaiting call back from hospitalist. Differential Dx:Considerations: Include: miller's cyst, Cancer, Cellulitis, Congestive heart failure, Compartment syndrome, Contusion, Deep venous thrombosis, Liver failure, Malnutrition, Muscle spasm, Plantaris rupture, Popliteal vein aneurysm, Renal faliure, Strain, Superfic thrombophlebitis, Venous insufficiency, Other Departure Time of Disposition: 11:02 Disposition: 30 STILL A PATIENT Admitted to Inpatient Unit: yes, to hospitalist Impression: Primary Impression: Edema Additional Impressions: Edema of lower extremity DVT (deep venous thrombosis) Pain Condition: Stable Discharge Instructions: Deep Vein Thrombosis, Edema Additional Instructions: This patient presents with initial presentation of local erythema, warmth, swelling concerning for cellulitis vs DVT.Pain to light touch around the edematous area. Low concern for osteomyelitis at this time. No immune compromise, bullae, pain out of proportion, or rapid progression concerning for necrotizing fasciitis. Vascular scan obtained with positive results. Driver License Agent unable to identify origin of clot at the iliac junction we will order CTA of pelvis and abdomen for further evaluation. Contact the vascular service for consultation. Discussed this case with Dr. Alvarado from vascular surgery. His recommendation at this time is to contact [facility] and speak with our interventional radiologist for consultation regarding a thrombectomy. Patient running or unable to accept the patient at this time due to no bed availability. A call has been put in to [facility]. Waiting callback. Referrals: NO PRIMARY CARE PROVIDER (PCP) Education Educated: Patient Educated regarding: diagnosis, treatment, need for follow up Signature Scribe Signature: A Attestation: Scribed for Mey Tavarez by CANDY Katz . 01/10/25 23:58 FARHAD RUIZ Jan 10, 2025 13:57 MEY TAVAREZ Jan 10, 2025 18:51 TERRY WOODY MD Jan 11, 2025 11:02
--- NOTE | 2025-01-10 15:27 | VASCULAR REPORT ---
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 : FARHAD RUIZ, Preliminary Report The above named patient was referred for a NON-INVASIVE LOWER EXTREMITY VENOUS EXAMINATION. The evaluation includes grayscale imaging, color flow Doppler and spectral analysis of the major deep and superficial lower extremity veins. Left Lower Extremity Venous Study for DVT Patient ER [employer] Pain and swelling in left leg status post left foot surgery November 30. Risk Factors Post OP Vein Imaging (Right) CFV (R): Spontaneous, Respirophasic, Augmentation Reflux: ms Vein Imaging (Left) EIV (L): Non-Compressible, Absent Flow, Thrombus Reflux: ms CFV (L): Non-Compressible, Absent Flow, Thrombus Reflux: ms SFJ (L): Non-Compressible, Absent Flow, Thrombus Reflux: ms FEM (L): Non-Compressible, Absent Flow, Thrombus POP (L): Non-Compressible, Absent Flow, Thrombus Reflux: ms Reflux: ms DFV (L): Non-Compressible, Absent Flow, Thrombus Reflux: ms PTV (L): Augmentation Reflux: ms GSV (L): Non-Compressible, Absent Flow, Thrombus Reflux: ms Peroneals (L): Non-Compressible, Absent Flow, Thrombus Reflux: ms Critical Notification Physician Notified Impression: Acute on chronic thrombus noted throughout the left leg. Common femoral vein, femoral vein, and profunda femoral vein are all noncompressible. No venous flow is visualized except wound on the posterior tibial veins.
[2025-01-10 15:35] LABS: MEAN PLATELET VOLUME 8.8 FL (7.4-10.4); RED CELL DISTRIBUTION WIDTH 12.7 % (11.5-14.5)
[2025-01-10 15:44] LABS: CREATININE 0.80 MG/DL (0.40-0.90); TOTAL CARBON DIOXIDE 24.9 MMOL/L (24-32); eCRCL 66 ML/MIN; eGFR 76 ML/MIN
[2025-01-10 15:47] LABS: APTT 25 SECONDS (22-32); INR 1.0 INR
--- NOTE | 2025-01-10 17:19 | RADIOLOGY REPORT ---
CTA ABDOMEN AND PELVIS WITH CONTRAST INDICATION: Eval for venous occlusion COMPARISON: None TECHNIQUES: Thin axial CT images of the abdomen and pelvis are obtained in the early arterial phase after intravenous contrast administration. Maximum intensity projection (MIP) images were provided. 3-D images were constructed on independent workstation. Radiation optimization: All CT scans at this facility use at least one of these dose optimization techniques: Automated exposure control mA and/or kV adjustment per patient size (includes targeted exams where dose is matched to clinical indication) or iterative reconstruction. CONTRAST ADMINISTERED: 100 mL omnipaque 350 intravenously RADIATION DOSE: CTDI: 19 mGy DLP: 2065 mGy-cm FINDINGS: The visualized lung bases are grossly clear. There is no pleural effusion. There is no pericardial effusion. The spleen is not enlarged. The liver is normal in size and contour. The gallbladder is distended. No calcified gallstone is identified. The pancreas is within normal limits. The adrenal glands are normal. The kidneys enhance symmetrically. There is no hydronephrosis of either kidney. There is no ab dominal aortic aneurysm or dissection. No visceral arterial aneurysm is identified. There are 2 right renal arteries. There is 1 left renal artery. The celiac, SMA, AREN, and renal arteries are widely patent. There is no significant atherosclerotic plaque. The urinary bladder is within normal limits. There is a 2.4 cm left ovarian follicle. The uterus and ovaries are otherwise unremarkable. No free fluid is identified in the abdomen or pelvis. There is no pathologic lymphadenopathy by size criteria. The colonic stool burden is small. The appendix is surgically absent. There is distention of the left common femoral vein, left external iliac vein, left internal iliac vein, and left common iliac vein. There is inflammatory stranding surrounding the distended veins. There is no enhancement of the distended veins. There is flattening of the left common iliac vein at the bifurcation by the right common iliac artery suggestive of May-Thurner syndrome. No acute osseous abnormality is identified. 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
[2025-01-10] MEDS ORDERED: heparin 10,000 units/1 ML INJ IV ONE (20:15)
[2025-01-10 20:51] LABS: MEAN PLATELET VOLUME 9.0 FL (7.4-10.4); RED CELL DISTRIBUTION WIDTH 12.8 % (11.5-14.5)
[2025-01-10] MEDS: heparin 10,000 units/1 ML INJ IV ONE (20:58)
[2025-01-10] MEDS: heparin 25,000 UNIT/250ml bag 250 ML IV PRN (20:59)
[2025-01-10] MEDS: MESSAGE TO NURSING IV ONE (21:00)
[2025-01-10 21:06] LABS: APTT 25 SECONDS (22-32); INR 1.1 INR
[2025-01-11 04:01] LABS: MEAN PLATELET VOLUME 9.2 FL (7.4-10.4); RED CELL DISTRIBUTION WIDTH 12.9 % (11.5-14.5)
[2025-01-11] MEDS: heparin 10,000 units/1 ML INJ IV PRN (04:46)
[2025-01-11] MEDS ORDERED: CLON0.5T4 PO (04:57)
[2025-01-11] MEDS ORDERED: ALBU18HF2 IH (04:57)
[2025-01-11] MEDS ORDERED: EPIN0.3A3 IM (04:57)
[2025-01-11] MEDS ORDERED: PANT40TA54 PO (04:57)
[2025-01-11] MEDS ORDERED: UBRO100T PO (04:57)
[2025-01-11 06:02] VITALS: TEMP 98.2
[2025-01-11] MEDS: MESSAGE TO NURSING IV ONE ×2 (06:28→09:49)
[2025-01-11] MEDS ORDERED: heparin 25,000 UNIT/250ml bag 250 ML IV PRN (07:00)
[2025-01-11 14:05] VITALS: BP 122/78; PULSE 95; RESP 18; O2SAT 95
== END 2025-01-11 14:08 | disposition still patient (30) ==
LOC: ER 12:25
DX: I82.402 Acute embolism and thrombosis of unspecified deep veins of left lower extremity (principal); Z88.5 Allergy status to narcotic agent; Z88.8 Allergy status to other drugs, medicaments and biological substances
CPT/HCPCS: 36415; 74174; 80048; 85025; 85610; 85730; 93971; 96374; 96375; 96376; 99285; J1644; Q9967

== ENCOUNTER 2025-01-22 13:10 | Emergency (ER) | payer MEDICAID ==
[~2025-01-22] VITALS: Ht 157.5 cm; Wt 77.5 kg
[~2025-01-22 13:10] MED LIST changes: +ALBU18HF2 IH; -ASPI81TA52 PO; -BACI1TAB; -CHOL500044 PO; -CHOL500049 PO; +CLON0.5T4 PO; +EPIN0.3A3 IM; -FERR-28 PO; -MAGN400C PO; -META-117 PO; -OMEP40CA21 PO; -ONDA-245 PO; +PANT40TA54 PO; +UBRO100T PO
--- NOTE | 2025-01-22 13:25 | ELECTROCARDIOGRAPH REPORT ---
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 Triston Pierre Measurements Intervals Moro Rate: 85 P: 33 CT: 141 QRS: 34 QRSD: 90 T: 7 QT: 352 QTc: 419 Interpretive Statements Sinus rhythm Borderline T abnormalities, anterior leads Electronically Signed On 01-31-2025 21:52:[address] Triston Pierre Please click the below link to view image of tracing.
--- NOTE | 2025-01-22 13:33 | Physician Documentation ---
History of Present Illness ~ Chief Complaint: Hypotension Stated Complaint: LOW BLOOD PRESSURE Time Seen by MD: 16:44 HPI Reports to the emergency department for evaluation of hypotension. She reports that her home blood pressure monitor read low when she checked her blood pressure at home. Blood pressure is currently within normal range here in the emergency department. Medication Reconciliation Allergies: Coded Allergies: baclofen (Verified Allergy, Severe, RASH, 12/23/24) codeine (Verified Allergy, Severe, DIFF BREATHING, 12/23/24) cyclobenzaprine (Verified Allergy, Severe, RASH, 12/23/24) doxycycline (Verified Allergy, Severe, HIVES AN DRASH, 12/23/24) hydrocodone (Verified Allergy, Severe, DIFF BREATHING, 12/23/24) sugammadex (Verified Allergy, Severe, ANAPHYLATIC RXN, 12/23/24) tramadol (Verified Allergy, Severe, DIFFICULITY BREATHING, 12/23/24) clindamycin (Verified Allergy, Unknown, RASH AND HIVES, 12/23/24) meloxicam (Verified Allergy, Unknown, RASH AND HIVES, 12/23/24) Scheduled Albuterol Sulfate (Ventolin Hfa), 1 PUFF IH PRN, (Reported) Clonazepam (Clonazepam), 1 TAB PO TID, (Reported) Pantoprazole Sodium (Pantoprazole Sodium), 1 TAB PO QAM, (Reported) Potassium Chloride* (K-Dur*), 1 TAB PO Q12H Scheduled PRN Epinephrine (Epinephrine), 0.3 MG IM PRN PRN for allergies, (Reported) Ubrogepant (Ubrelvy), 1 TAB PO PRN PRN for migraine headaches, (Reported) Past Medical History Past Surgical History: orthopedic surgeries Review of Systems ROS As stated above in the HPI, otherwise all systems are reviewed and negative. Physical Exam Vital Signs: Temperature: 97.9, Source: Temporal, Heart Rate: 85, Respiratory Rate: 18, BP: 119/69, Pulse Oximetry: 98, Weight: 77.500 Oxygen Flow Rate: 0 Physical Exam VITALS: Reviewed and as above. GENERAL: Alert, no apparent distress. HEENT: Normocephalic, atraumatic, PERRL, EOMI, dry mucosa, no erythema RESPIRATORY: Lungs clear, normal breath sounds, no respiratory distress. CHEST: No accessory muscle use, no retractions CV: Regular rate, rhythm, no edema, no murmur, No: JVD GI: Soft, non-tender, bowels sounds present, no rebound, guarding, or rigidity BACK: No CVA tenderness, or swelling MUSCULOSKELETAL No deformities, no edema SKIN: Warm and dry, no rash NEURO: Oriented x4, No motor or sensory deficit PSYCH: Normal mood and affect, no agitation Progress Results/Orders Results/Orders Orders - GALINA TAVAREZ * Iv Access / Saline Lock * (01/22/25 17:04) Completed Orders - GALINA TAVAREZ DIETARY MANAGER Normal Saline 1000ml (0.9% Sodium Chlori (01/22/25 17:05) Potassium Cl 20meq/15ml Oral (Potassium (01/22/25 17:05) Potassium Cl 20meq/100ml Bag (Potassium (01/22/25 17:20) Medications Received in ER Medications (Trade) Dose Ordered Sig/Vanessa Route PRN Reason Start Time Stop Time Status Last Admin Dose Admin (0.9% sodium chloride (NS) 1000ml IV soln) 250 ml ONCE ONCE IVB 01/22/25 17:05 01/22/25 17:07 DC 01/22/25 17:05 250 ML (POTASSIUM Cl 20mEq/15mL oral solution) 20 meq ONCE ONCE PO 01/22/25 17:05 01/22/25 17:18 DC 01/22/25 17:05 20 MEQ Potassium Chloride 100 ml @ 100 mls/hr Q1H IV 01/22/25 17:20 01/22/25 18:19 DC 01/22/25 17:20 100 MLS/HR Vital Signs 01/22/25 01/22/25 01/22/25 01/22/25 13:16 17:00 17:30 18:34 Temp 97.9 Pulse 85 65 65 Resp 18 18 16 18 B/P (MAP) 119/69 108/75 (86) 104/58 (73) Pulse Ox 98 98 97 O2 Flow Rate 0 0 0 Laboratory Tests Test 01/22/25 13:24 White Blood Count 8.0 Red Blood Count 4.31 Hemoglobin 13.5 Hematocrit 38.8 Mean Corpuscular Volume 90.1 Mean Corpuscular Hemoglobin 31.2 H Mean Corpuscular Hemoglobin Concent 34.7 Red Cell Distribution Width 13.8 Platelet Count 370 Mean Platelet Volume 8.1 Neutrophils (%) (Auto) 63.6 Lymphocytes (%) (Auto) 27.8 Monocytes (%) (Auto) 7.5 Eosinophils (%) (Auto) 0.4 Basophils (%) (Auto) 0.7 Neutrophils # (Auto) 5.1 Lymphocytes # (Auto) 2.2 Monocytes # (Auto) 0.6 Eosinophils # (Auto) 0.0 Basophils # (Auto) 0.1 CBC Comment Sodium Level 144 Potassium Level 3.0 *L Chloride Level 108 H Carbon Dioxide Level 28.3 Anion Gap 8 Blood Urea Nitrogen 6 L Creatinine 0.64 Estimated GFR/1.73 m2 > 90 BUN/Creatinine Ratio 9.4 L Glucose Level 93 Calcium Level 9.0 Troponin I High Sensitivity 5 Pro-B-Type Natriuretic Peptide 228 H Albumin 3.3 L Chemistry Comments Medical Decision Making Findings This patient presents with generalized weakness and fatigue likely secondary to dehydration. Reports episodes of hypotension prior to presentation to emergency department today. Today the patient's patient's blood pressure and vital signs are within normal range inappropriate. Labs are all within normal range with the exception of a low potassium at 3.0. Patient's potassium was repleted with 20 mEq of IV potassium and 20 mEq of oral potassium. Considered alternate etiologies of the patients symptoms including infectious processes, severe metabolic derangements or electrolyte abnormalities, ischemia/ACS, heart failure, and intracranial/central processes but think these are unlikely given the history and physical exam. Patient follow up with her primary care provider regarding persistently low potassium episodes of hypotension at home. Patient will return to the emergency department with any worsening or recurrent symptoms or any additional concerning symptoms that we discussed here today i.e. syncopal episodes or loss of consciousness lightheadedness shortness of breath chest pain chest pressure headache nausea vomiting diarrhea or any other concerning symptoms that we discussed here today. Differential Dx:Considerations: Include: dehydration, Delirium Tr., DKA, encephalopathy, hypercalcemia, HHNC, hypoglycemia, hypernatremia, hyponatremia, hypoxia, postictal, closed head injury, C-spine injury, CVA, mass lesion, subarachnoid hemorrhage, drug overdose, encephalopathy, ETOH intoxication, medication toxicity, infection - meningitis, infection - sepsis, infection - UTI, heart failure, renal failure, respiratory failure, hyperthermia, hypothermia, other Departure Disposition: HOME / SELF CARE / HOMELESS Impression: Primary Impression: Dehydration Additional Impressions: Hypokalemia Lethargy Generalized weakness Discharge Instructions: Dehydration, Adult, [id number], Hypokalemia Additional Instructions: This patient presents with generalized weakness and fatigue likely secondary to dehydration. Reports episodes of hypotension prior to presentation to emergency department today. Today the patient's patient's blood pressure and vital signs are within normal range inappropriate. Labs are all within normal range with the exception of a low potassium at 3.0. Patient's potassium was repleted with 20 mEq of IV potassium and 20 mEq of oral potassium. Considered alternate etiologies of the patients symptoms including infectious processes, severe metabolic derangements or electrolyte abnormalities, ischemia/ACS, heart failure, and intracranial/central processes but think these are unlikely given the history and physical exam. Patient follow up with her primary care provider regarding persistently low potassium episodes of hypotension at home. Patient will return to the emergency department with any worsening or recurrent symptoms or any additional concerning symptoms that we discussed here today i.e. syncopal episodes or loss of consciousness lightheadedness shortness of breath chest pain chest pressure headache nausea vomiting diarrhea or any other concerning symptoms that we discussed here today. Please follow up with her primary care provider. Return to the emergency department with any worsening or recurrent symptoms or any additional concerning symptoms that we discussed here today. Referrals: NO PRIMARY CARE PROVIDER (PCP) Education Educated: Patient Educated regarding: diagnosis, treatment, need for follow up Signature Scribe Signature: A Attestation: Scribed for Galina Tavarez by CANDY Katz . 01/22/25 19:20 GALINA TAVAREZ Jan 22, 2025 13:33
[2025-01-22 13:41] LABS: MEAN PLATELET VOLUME 8.1 FL (7.4-10.4); RED CELL DISTRIBUTION WIDTH 13.8 % (11.5-14.5)
[2025-01-22 14:05] LABS: CREATININE 0.64 MG/DL (0.40-0.90); PRO BRAIN NATRIURETIC PEPTIDE 228 PG/ML (0-125); TOTAL CARBON DIOXIDE 28.3 MMOL/L (24-32); eCRCL 82 ML/MIN; eGFR > 90 ML/MIN
--- NOTE | 2025-01-22 14:06 | RADIOLOGY REPORT ---
EXAM: DI CHEST,SINGLE VIEW Indication: CP Technique: Single frontal view of the chest was obtained Comparison: DI CHEST,SINGLE VIEW on DOS: 01/08/25, DI CHEST,SINGLE VIEW on DOS: 12/23/24, CT CTA CHEST PE W/ IV CONTRAST on DOS: 12/19/24, DI CHEST,SINGLE VIEW on DOS: 12/19/24 FINDINGS: Lines and Tubes: None Lungs: No focal consolidation. Pleura: No effusion. No pneumothorax. Cardiomediastinal contours: Unremarkable Bones: No acute osseous abnormality. IMPRESSION: No acute cardiopulmonary disease.
[2025-01-22] MEDS: normal saline 1000ML IV soln IVB ONE (17:05)
[2025-01-22] MEDS: POTASSIUM CHLORIDE 20 MEQ/15 ML oral solution PO ONE (17:05)
[2025-01-22] MEDS: potassium Cl 20mEq/100mL bag 100 ML IV SCH (17:20)
[2025-01-22 20:59] VITALS: BP 111/60; PULSE 62; RESP 18; TEMP 98.6; O2SAT 99
== END 2025-01-22 21:01 | disposition home or self-care (01) ==
LOC: ER 13:11
DX: E86.0 Dehydration (principal); E87.6 Hypokalemia; R53.1 Weakness; R53.83 Other fatigue; Z88.5 Allergy status to narcotic agent; Z88.8 Allergy status to other drugs, medicaments and biological substances; Z88.1 Allergy status to other antibiotic agents; Z79.899 Other long term (current) drug therapy; Z98.890 Other specified postprocedural states
CPT/HCPCS: 36415; 71045; 80048; 83880; 84484; 85025; 93005; 96365; 99285; J3480; J7030